=== PATIENT | male | born 1990 | race African-American/Black ===

== ENCOUNTER 2024-03-26 14:34 | Emergency (ER) | payer BC, OTHER, SELFPAY ==
[2024-03-26 14:40] VITALS: BP 120/74; PULSE 85; RESP 20; TEMP 36.5; O2SAT 98
--- NOTE | 2024-03-26 15:25 | ED.SKABFB ---
HPI - Skin/Abscess/Foreign Bdy General Chief complaint: Skin/Abscess/Foreign Body Stated complaint: rash on legs Time Seen by Provider: 03/26/24 14:52 Source: patient, RN notes reviewed and old records reviewed Mode of arrival: ambulatory Limitations: no limitations History of Present Illness HPI narrative: 33-year-old male to [facility] with complaint of rash to bilateral lower extremities. Patient initially reports that rash has been present for 6-12 months and is now saying it has been present for over 1 year. Patient describes rash as red, spotty, itching, weeping. Patient reports attempting to treat at home with hydrocortisone cream. Patient denies any other contacts with similar rash, denies having pets at home, fever, body aches, nausea, pertinent medical history, allergies. patient is sitting comfortable in exam room in no acute distress. Respirations even and nonlabored. patient states he does not currently have a primary care provider and cannot recall the last time he was seen by a PCP. Related Data Allergies Allergy/AdvReac Type Severity Reaction Status Date / Time No Known Allergies Allergy Verified 03/26/24 15:25 Review of Systems Review of Systems: All systems reviewed & are unremarkable except as noted in HPI and below Constitutional: Constitutional: Reports no additional constitutional complaints Eyes: Eyes: Reports no additional eye complaints ENT: Reports system reviewed and no additional complaints, except as documented Cardiovascular: Cardiovascular: Reports no additional cardiovascular complaints, Denies chest pain and Denies dyspnea Respiratory: Respiratory: Reports no additional respiratory complaints, Denies cough and Denies dyspnea Musculoskeletal: Musculoskeletal: Reports no additional musculoskeletal complaints Integumentary/Breasts: Skin/Breast: Reports as per HPI, Reports pruritus, Reports erythema and Reports rash Comments: Bilateral lower extremities Neurologic: Reports system reviewed and no additional complaints, except as documented Psychiatric: Psychiatric: Reports no additional psychiatric complaints PMFSH Comments At the time of my signature, I reviewed and agree with the nursing past medical, surgical, social, and family history. There is no relevant family history pertinent to the patient complaint. Exam Const: General: cooperative, no acute distress, alert, poor hygiene, tired appearing, well nourished and obese Nutritional Appearance: well nourished Orientation/consciousness: patient oriented x3 Limitations: no limitations HENMT: Head: normal to inspection Ears: external ears normal Face/Nose/Sinus: Normal external nose present, Normal nares present, normal facial exam, No erythema and No edema Face and sinus: normal facial exam, no erythema and no edema Mouth: Yes Normal oral and palatal mucosa present Eyes: General: appearance normal, both eyes and all related structures Neck: Neck: normal visual inspection, full ROM and no meningeal signs Chest: Chest palpation & inspection: normal inspection of the chest Resp: Effort & Inspection: normal respiratory effort and able to speak in complete sentences Cardio: Jugular venous distension: no JVD Back/Spine/Pelvis: Cervical Spine: cervical ROM normal Skin: Rashes: rashes noted urticaria bilateral distal lower leg arrangement Wounds: wounds noted Neuro: General: patient oriented x3, gait normal, moves all extremities and no meningeal signs Speech: normal speech Gait exam (Neuro): Normal gait present Extrem: General: normal to inspection, full ROM and capillary refill normal Psych: Appearance: grossly normal and well kempt Course Course Emergency Course: Some parts of this dictation were generated by voice recognition software and may contain typographical and/or grammatical inaccuracies. Level of Care: Express Care Visit Vital Signs Vital signs: Vital Signs Temperature 36.5 C 03/26/24
== END 2024-03-26 15:40 | disposition home or self-care (01) ==
PROVIDERS: Emergency Provider Nurse Practitioner Family
DX: L50.9 Urticaria, unspecified (principal)
CPT/HCPCS: 99203; G0463